=== PATIENT | female | born 1950 | race Caucasian/White ===

== ENCOUNTER 2022-04-16 14:26 | Emergency (ER) | payer MEDICARE, OTHER, SELFPAY ==
[2022-04-16 14:40] VITALS: BP 176/84; PULSE 75; RESP 18; TEMP 36.7; O2SAT 98; BMI 25.4
--- NOTE | 2022-04-16 14:59 | CTR_ITS ---
PROCEDURE INFORMATION: Exam: CT Head Without Contrast Exam date and time: 04/16/2022 4:39 PM Age: 71 years old Clinical indication: Injury or trauma; Fall; Blunt trauma (contusions or hematomas) TECHNIQUE: Imaging protocol: Computed tomography of the head without contrast. Radiation optimization: All CT scans at this facility use at least one of these dose optimization techniques: automated exposure control; mA and/or kV adjustment per patient size (includes targeted exams where dose is matched to clinical indication); or iterative reconstruction. COMPARISON: No relevant prior studies available. RADIATION DOSE METRICS: Total DLP (mGy-cm): 1084.63 FINDINGS: Brain: There are mild periventricular and subcortical lucencies consistent with chronic microvascular ischemic changes. The peace-white differentiation is maintained. No hemorrhage. No edema. Cerebral ventricles: No ventriculomegaly. Paranasal sinuses: Visualized sinuses are unremarkable. No fluid levels. Mastoid air cells: Visualized mastoid air cells are well aerated. Orbital cavities: Bilateral cataract surgery. Bones/joints: Unremarkable. No acute fracture. Soft tissues: Unremarkable. CT/CT head wo con* [id number] IMPRESSION: No acute intracranial abnormality. Chronic microvascular ischemic changes.
--- NOTE | 2022-04-16 16:12 | PC.NURSE ---
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 states she climbed on the trailer and it threw it off and she landed on her back. reports pt fell approximately 3-4 feet. Reports hit her head, denies LOC, denies blood thinners, denies N/V. Pt A&Ox4. Speech clear and speaking in complete sentences without difficulty, Pupils equal and round. lung sounds clear bilat. bowel sounds present. wound care specialist equal, push/pull WNL. pt reports pain to head, mid back, and tailbone.
--- NOTE | 2022-04-16 16:19 | CTR_ITS ---
PROCEDURE INFORMATION: Exam: CT Cervical Spine Without Contrast Exam date and time: 04/16/2022 4:42 PM Age: 71 years old Clinical indication: Injury or trauma; Fall; Blunt trauma TECHNIQUE: Imaging protocol: Computed tomography of the cervical spine without contrast. Radiation optimization: All CT scans at this facility use at least one of these dose optimization techniques: automated exposure control; mA and/or kV adjustment per patient size (includes targeted exams where dose is matched to clinical indication); or iterative reconstruction. COMPARISON: CT head wo con* [id number] 04/16/2022 4:39 PM RADIATION DOSE METRICS: Total DLP (mGy-cm): 348 FINDINGS: Bones/joints: No acute fracture. Normal alignment. No significant disc protrusion. No severe spinal canal stenosis. Lungs: Lung apices are normal. Soft tissues: Unremarkable. CT/CT cervical spin wo con* [id number] IMPRESSION: No acute findings.
--- NOTE | 2022-04-16 16:19 | CTR_ITS ---
PROCEDURE INFORMATION: Exam: CT Lumbar Spine Without Contrast Exam date and time: 04/16/2022 4:50 PM Age: 71 years old Clinical indication: Injury or trauma; Fall; Blunt trauma (contusions or hematomas) TECHNIQUE: Imaging protocol: Computed tomography of the lumbar spine without contrast. Radiation optimization: All CT scans at this facility use at least one of these dose optimization techniques: automated exposure control; mA and/or kV adjustment per patient size (includes targeted exams where dose is matched to clinical indication); or iterative reconstruction. COMPARISON: No relevant prior studies available. RADIATION DOSE METRICS: Total DLP (mGy-cm): 728.68 FINDINGS: Bones/joints: No acute fracture. Normal alignment. L1-L2: No significant disc protrusion. No severe spinal canal stenosis. No significant neural foraminal narrowing. L2-L3: L2-L3 bilobed posterior disc bulge with minimal bilateral foraminal narrowing. L3-L4: L3-L4 bilobed posterior disc bulge with minimal bilateral foraminal narrowing. L4-L5: L4-L5 broad-based disc bulge with mild spinal canal and mild bilateral foraminal narrowing. L5-S1: L5/S1 broad-based disc bulge with productive degenerative changes resulting in moderate to severe bilateral foraminal narrowing. Liver: Right hepatic lobe cyst. Stomach and bowel: Diverticulosis without diverticulitis. Soft tissues: Unremarkable. CT/CT lumbar spine wo con* [id number] IMPRESSION: 1. Negative for fracture or dislocation. 2. Diverticulosis without diverticulitis. 3. Right hepatic lobe cyst. 4. L2-L3 bilobed posterior disc bulge with minimal bilateral foraminal narrowing. 5. L3-L4 bilobed posterior disc bulge with minimal bilateral foraminal narrowing. 6. L4-L5 broad-based disc bulge with mild spinal canal and mild bilateral foraminal narrowing. 7. L5/S1 broad-based disc bulge with productive degenerative changes resulting in moderate to severe bilateral foraminal narrowing.
--- NOTE | 2022-04-16 16:19 | CTR_ITS ---
PROCEDURE INFORMATION: Exam: CT Maxillofacial Without Contrast Exam date and time: 04/16/2022 4:42 PM Age: 71 years old Clinical indication: Injury or trauma; Fall; Blunt trauma (contusions or hematomas); Other: Right side TECHNIQUE: Imaging protocol: Computed tomography of the of the face without contrast. Radiation optimization: All CT scans at this facility use at least one of these dose optimization techniques: automated exposure control; mA and/or kV adjustment per patient size (includes targeted exams where dose is matched to clinical indication); or iterative reconstruction. COMPARISON: CT head wo con* [id number] 04/16/2022 4:39 PM RADIATION DOSE METRICS: Total DLP (mGy-cm): 588.7 FINDINGS: Orbital cavities: Orbits are normal. Globes are unremarkable. Bones/joints: No acute fracture. Paranasal sinuses: Normal. No air-fluid levels. Soft tissues: Unremarkable. CT/CT facial bones wo con* [id number] IMPRESSION: No acute findings.
--- NOTE | 2022-04-16 16:20 | ED_ITS ---
HPI - Back Pain/Injury General: Chief Complaint: Back Pain/Injury Stated Complaint: fall, Hit head and back Time Seen by Provider: 04/16/22 15:00 History of Present Illness: 71-year-old female presents due to headache neck pain right-sided facial pain and mid back pain after mechanical fall. 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 Denies loss of consciousness. Denies any other focal pain or injury. Denies any focal weakness numbness or tingling. Denies urinary or fecal incontinence or retention. Review of Systems Narrative: - CONSTITUTIONAL: Denies weight loss, fever and chills. - HEENT: Denies changes in vision and hearing. - RESPIRATORY: Denies SOB and cough. - CV: Denies palpitations and CP. - GI: Denies abdominal pain, nausea, vomiting and diarrhea. - : Denies dysuria and urinary frequency. - MSK: As above - SKIN: Denies rash and pruritus. - NEUROLOGICAL: As above - PSYCHIATRIC: Denies suicidal ideation Physical Exam Narrative: EXAM NARRATIVE: - GENERAL: Alert and oriented x 3. No acute distress. Well-nourished. - EYES: EOMI. Anicteric. - HENT: Posterior occipital tenderness, midline C-spine tenderness. Moist mucous membranes. No scleral icterus. No cervical lymphadenopathy. - LUNGS: Clear to auscultation bilaterally. No accessory muscle use. Equal lung sounds bilaterally. No respiratory distress. - CARDIOVASCULAR: Regular rate and rhythm. No murmur. No JVD. - ABDOMEN: Soft, non-tender and non-distended. Negative CVA tenderness bilaterally, no rebound or guarding, negative [place] sign. No palpable masses. - EXTREMITIES: No edema. Mild midline lumbar tenderness to palpation. No saddle anesthesia, lower extremity strength sensation reflexes intact. - SKIN: No rashes or lesions. Warm. - NEUROLOGIC: No meningismus or focal neurological deficits. CN II-XII grossly intact. - PSYCHIATRIC: Cooperative. Appropriate mood and affect. Course Vital Signs: Vital signs: Vital Signs Temperature 98.1 F 04/16/22 14:40 Pulse Rate 75 04/16/22 14:40 Respiratory Rate 18 04/16/22 14:40 Blood Pressure 176/84 04/16/22 14:40 Pulse Oximetry 98 04/16/22 14:40 Oxygen Delivery Me thod 04/16/22 14:40 MDM - Back Pain/Injury Medical Decision Making 71-year-old presents with pain as above after mechanical fall. Nonfocal neurologic exam. CT scans do not reveal any acute fracture dislocation intracranial hemorrhage or other acute abnormality. There are some degenerative spinal changes but she does not have any signs of cauda equina syndrome or cord compression I do not believe MRI is required at this time. Does have hepatic cyst for which outpatient follow-up was recommended and this was communicated to patient. At this time I believe patient would be safe for discharge and outpatient follow-up. Return precautions provided. Plan was reviewed with the patient who expressed understanding. Questions answered. Patient will follow up with PCP. Patient discharged in stable condition. Labs Radiology Impressions Head CT 04/16/22 14:59 IMPRESSION: No acute intracranial abnormality. Chronic microvascular ischemic changes. Cervical Spine CT 04/16/22 16:19 IMPRESSION: No acute findings. Face CT 04/16/22 16:19 IMPRESSION: No acute findings. Lumbar Spine CT 04/16/22 16:19 IMPRESSION: 1. Negative for fracture or dislocation. 2. Diverticulosis without diverticulitis. 3. Right hepatic lobe cyst. 4. L2-L3 bilobed posterior disc bulge with minimal bilateral foraminal narrowing. 5. L3-L4 bilobed posterior disc bulge with minimal bilateral foraminal narrowing. 6. L4-L5 broad-based disc bulge with mild spinal canal and mild bilateral foraminal narrowing. 7. L5/S1 broad-based disc bulge with productive degenerative changes resulting in moderate to severe bilateral foraminal narrowing. Discharge Plan Discharge Condition: Stable Prescriptions: No Action Claritin 10 mg Tablet 10 mg PO DAILY Pseudoephedrine Cold/Allergy 4-60 mg Tablet 1 tab PO Q6H PRN (Reason: Nasal Congestion) Referrals: Iglesia Tobar DO [Primary Care Provider] - Coding Level of Care Code ED Bereavement Counselor for Giulia Bennett
[2022-04-16 18:43] VITALS: BP 140/64; PULSE 94; RESP 18; O2SAT 98
== END 2022-04-16 18:44 | disposition home or self-care (01) ==
PROVIDERS: Emergency Provider Emergency Medicine; PCP Family Medicine
DX: R51.9 Headache, unspecified (principal); M54.2 Cervicalgia; M54.6 Pain in thoracic spine
CPT/HCPCS: 70450; 70486; 72125; 72131; 99284

== ENCOUNTER → 2025-02-01 10:27 | Outpatient (BNVA) | payer MEDICARE, OTHER, SELFPAY | PROVIDERS: PCP Family Medicine; Visit Provider Emergency Medicine | DX: S52.351A Displaced comminuted fracture of shaft of radius, right arm, initial encounter for closed fracture (principal) | CPT/HCPCS: 73110 ==

== ENCOUNTER → 2025-02-06 08:42 | Outpatient (BNVA) | payer MEDICARE, OTHER, SELFPAY | PROVIDERS: PCP Family Medicine; Referring Provider Emergency Medicine; Visit Provider Specialist | DX: S52.551A Other extraarticular fracture of lower end of right radius, initial encounter for closed fracture (principal); X58.XXXA Exposure to other specified factors, initial encounter | CPT/HCPCS: 73110 ==

== ENCOUNTER 2025-02-06 09:57 | Outpatient (CLI) | payer MEDICARE, OTHER, SELFPAY | END 2025-02-06 09:58 | disposition home or self-care (01) | LOC: SPT 09:58 | PROVIDERS: PCP Family Medicine; Visit Provider Specialist | DX: S52.551A Other extraarticular fracture of lower end of right radius, initial encounter for closed fracture (principal); X58.XXXA Exposure to other specified factors, initial encounter | CPT/HCPCS: 25600; 99204; L3982 ==

== ENCOUNTER → 2025-02-16 10:36 | Outpatient (BNVA) | payer MEDICARE, OTHER, SELFPAY | PROVIDERS: PCP Family Medicine; Visit Provider Nurse Practitioner | DX: S52.551A Other extraarticular fracture of lower end of right radius, initial encounter for closed fracture (principal); X58.XXXA Exposure to other specified factors, initial encounter | CPT/HCPCS: 73110 ==

== ENCOUNTER → 2025-03-02 09:49 | Outpatient (BNVA) | payer MEDICARE, OTHER, SELFPAY | PROVIDERS: PCP Family Medicine; Visit Provider Specialist | DX: Z98.890 Other specified postprocedural states (principal) | CPT/HCPCS: 73110; 99024 ==

== ENCOUNTER → 2025-03-23 09:04 | Outpatient (BNVA) | payer MEDICARE, OTHER, SELFPAY | PROVIDERS: PCP Family Medicine; Visit Provider Nurse Practitioner | DX: S52.551D Other extraarticular fracture of lower end of right radius, subsequent encounter for closed fracture with routine healing (principal); X58.XXXD Exposure to other specified factors, subsequent encounter | CPT/HCPCS: 73110; 99213 ==

== ENCOUNTER → 2025-04-13 15:06 | Outpatient (BNVA) | payer MEDICARE, OTHER, SELFPAY | PROVIDERS: PCP Family Medicine; Visit Provider Nurse Practitioner | DX: S52.551D Other extraarticular fracture of lower end of right radius, subsequent encounter for closed fracture with routine healing (principal); X58.XXXD Exposure to other specified factors, subsequent encounter | CPT/HCPCS: 73110; 99024 ==

== ENCOUNTER → 2025-05-22 08:02 | Outpatient (BNVA) | payer MEDICARE, OTHER, SELFPAY | PROVIDERS: PCP Family Medicine; Visit Provider Nurse Practitioner | DX: S52.551D Other extraarticular fracture of lower end of right radius, subsequent encounter for closed fracture with routine healing (principal); X58.XXXD Exposure to other specified factors, subsequent encounter | CPT/HCPCS: 73110; 99214 ==

== ENCOUNTER → 2025-07-24 08:23 | Outpatient (BNVA) | payer MEDICARE, OTHER, SELFPAY | PROVIDERS: PCP Family Medicine; Visit Provider Nurse Practitioner | DX: S52.551D Other extraarticular fracture of lower end of right radius, subsequent encounter for closed fracture with routine healing (principal); X58.XXXD Exposure to other specified factors, subsequent encounter | CPT/HCPCS: 99213 ==